=== PATIENT | female | born 1960 | race Caucasian/White ===

== ENCOUNTER → 2018-02-27 | Outpatient (CLI) | payer OTHER ==
[~2018-02-27] MED LIST: APAP500 PO; CANCER MEDICATION; CYCLOBENZAPRINE5 MG PO; HYDROCODONE-APA1 TA1 PO; LORTAB 5-500 T1 EAC1 PO; NOLVADEX20 MG PO; PERCOCET 5-3251 EACH PO; PREDNISONE10 MG; TORADOL 10 MG T10 MG PO; TRAZODONE HCL100 MG PO; UNICOMPLEX M TA1 TA1 PO
== END ==
LOC: M.RAD 02-25 10:40 → M.ULTRA 02-25 10:40 → M.RAD 10:21 → M.ULTRA 11:00
DX: C50.912 Malignant neoplasm of unspecified site of left female breast (principal); R92.8 Other abnormal and inconclusive findings on diagnostic imaging of breast; Z17.0 Estrogen receptor positive status [ER+]; Z88.2 Allergy status to sulfonamides

== ENCOUNTER → 2018-03-14 | Outpatient (CLI) | payer OTHER | LOC: M.MRI 07:54 | DX: N64.4 Mastodynia (principal); R92.8 Other abnormal and inconclusive findings on diagnostic imaging of breast; Z85.3 Personal history of malignant neoplasm of breast ==

== ENCOUNTER → 2019-09-01 | Outpatient (CLI) | payer OTHER, MEDICARE | LOC: M.LAB 09:00 | DX: R00.2 Palpitations (principal) ==

== ENCOUNTER 2021-02-19 15:08 | Emergency (ER) | payer OTHER, MEDICARE ==
[~2021-02-19] VITALS: Ht 170.2 cm; Wt 99.8 kg
[2021-02-19] MEDS ORDERED: METOPROLOL SUCC50 MG PO (15:22)
[2021-02-19] MEDS ORDERED: DULOXETINE HCL20 MG PO (15:22)
[2021-02-19 15:39] LABS: URINE BILIRUBIN NEGATIVE (Negative); URINE BLOOD TRACE (Negative); URINE CLARITY CLEAR; URINE COLOR YELLOW; URINE GLUCOSE-RANDOM NEGATIVE (Negative); URINE KETONES NEGATIVE (Negative); URINE LEUKOCYTES-REFLEX NEGATIVE (Negative); URINE NITRITE-REFLEX NEGATIVE (Negative); URINE PROTEIN NEGATIVE (Negative); URINE SPECIFIC GRAVITY >= 1.030 (1.005-1.030); URINE UROBILINOGEN 0.2 E.U./dl (0.2-1.0)
[2021-02-19 15:41] LABS: HEMATOCRIT 40.3 % (37.0-47.0); HEMOGLOBIN 13.4 gm/dL (12.0-15.0); MCH 29.7 pg (26.0-34.0); MCHC 33.4 g/dL (28.0-37.0); MCV 89.1 fL (80.0-100.0); MPV 8.1 fl. (7.2-11.1); NUCLEATED RBCS 0 /100WBC; PLATELET COUNT* 265 thou/uL (150-400); RBC 4.52 mil/uL (4.20-5.00); RDW-CV 13.6 % (10.5-14.5); WBC 13.2 thou/uL (4.0-11.0)
[2021-02-19 15:48] LABS: CALCIUM 8.3 mg/dL (8.5-10.1); POTASSIUM 3.7 mmol/L (3.5-5.1)
[2021-02-19 15:53] LABS: ALBUMIN 3.2 g/dL (3.4-5.0); TOTAL BILIRUBIN 0.4 mg/dL (<0.1-1.0); TOTAL PROTEIN 7.1 g/dL (6.4-8.2)
[2021-02-19 15:56] LABS: ABSOLUTE LYMPHOCYTES 1.2 thou/uL (0.8-5.3); ABSOLUTE MONOCYTES 0.1 thou/uL (0.0-1.2); ABSOLUTE NEUTROPHILS 11.9 thou/uL (1.6-8.1); ATYPICAL LYMPHS 3 %; PLATELET ESTIMATE ADEQUATE
[2021-02-19] MEDS ORDERED: LOPERAMIDE 2 MG2 M1 PO (17:28)
[2021-02-19] MEDS ORDERED: ONDANSETRON ODT4 MG PO (17:28)
[2021-02-19] MEDS ORDERED: APAP W/CODEINE1 TA2 PO (17:28)
[2021-02-19 17:40] VITALS: BP 135/69
== END 2021-02-19 17:41 | disposition home or self-care (01) ==
LOC: M.ERS 15:08
PROVIDERS: Physician Assistant
DX: R11.2 Nausea with vomiting, unspecified (principal); R19.7 Diarrhea, unspecified; E27.9 Disorder of adrenal gland, unspecified; R10.84 Generalized abdominal pain; Z88.2 Allergy status to sulfonamides; Z96.652 Presence of left artificial knee joint; Z90.710 Acquired absence of both cervix and uterus